=== PATIENT | male | born 1950 | race Caucasian/White ===

== ENCOUNTER 2024-09-19 10:13 | Inpatient (IN) ==
[2024-09-19 10:46] LABS: ABS Basophils 0.1 10^3/uL (0.0-0.1); ABS Lymphocytes 1.2 10^3/uL (1.0-4.8); ABS Monocytes 1.3 10^3/uL (0.0-1.1); ABS Neutrophils 12.3 10^3/uL (1.5-7.6); ABS Nucleated RBC 0.01 10^3/ul; Hematocrit 42.8 % (38-53); Mean Corpuscular Hemoglobin 29.2 pg (27-33); Mean Corpuscular Hgb Conc 32.8 g/dL (31-36); Mean Platelet Volume 7.6 fL (7.5-11.2); Platelet Count 148 10^3/uL (150-450); Red Blood Count 4.81 10^6/uL (4.06-5.63); Red Cell Distribution Width 14.3 % (12-17); White Blood Count 14.9 10^3/uL (3.6-10.2)
[2024-09-19 10:52] LABS: INR 1.33 (0.85-1.14)
[2024-09-19 11:43] LABS: Albumin 4.4 g/dL (3.5-5.7); Calcium 9.6 mg/dL (8.6-10.3); Creatinine, Serum 1.66 mg/dL (0.67-1.17); Globulin 2.2 g/dL (2-4); Potassium 4.9 mmol/L (3.5-5.0); Total Bilirubin 1.1 mg/dL (0.2-1.0); Total Protein 6.6 g/dL (6.4-8.9)
[2024-09-19 12:29] LABS: High Sensitivity Troponin 1 Hr 106 pg/mL (<20)
[2024-09-19] MEDS: Iodixanol 320 (CONTRAST) 100 ML SDV IV ONE (13:24)
[2024-09-19] MEDS: Sulfur Hexaflouride MICROSPHR 25 MG VIAL IV PRN (14:53)
[2024-09-19] MEDS ORDERED: Sulfur Hexaflouride MICROSPHR 25 MG VIAL IV PRN (15:33)
[2024-09-19] MEDS: Heparin DRIP 25,000 UNITS BAG 25,000 UNITS/250 ML BAG IV SCH (15:48)
[2024-09-19] MEDS: Heparin 5000 UNITS/ML 1 mL VIAL IV SCH (15:50)
[2024-09-19 16:00] LABS: Hemoglobin 13.4 g/dL (13.2-16.3); Mean Corpuscular Hgb Conc 32.7 g/dL (31-36); Mean Corpuscular Volume 88.9 fL (80-97); Mean Platelet Volume 7.6 fL (7.5-11.2); Platelet Count 152 10^3/uL (150-450); Red Blood Count 4.61 10^6/uL (4.06-5.63); Red Cell Distribution Width 14.3 % (12-17); White Blood Count 14.2 10^3/uL (3.6-10.2)
[2024-09-19] MEDS ORDERED: Pantoprazole VIAL 40 MG VIAL IV SCH (16:00)
[2024-09-19 16:46] LABS: Creatinine, Serum 1.55 mg/dL (0.67-1.17); Magnesium 2.1 mg/dL (1.9-2.7); eGFR CKD-EPI 46.7 (>60)
[2024-09-19 17:00] LABS: Giant Platelets Present; RBC Morphology Normal (Normal)
[2024-09-19 17:08] LABS: ABS Basophils 0.1 10^3/uL (0.0-0.1); ABS Lymphocytes 1.4 10^3/uL (1.0-4.8); ABS Monocytes 1.6 10^3/uL (0.0-1.1); ABS Neutrophils 11.2 10^3/uL (1.5-7.6); ABS Nucleated RBC 0.01 10^3/ul; Eosinophil % 0.1 %; Lymphocyte % 9.7 %; Nucleated Red Blood Cells % 0.1 %/100WBC (0.0-0.8)
[2024-09-20 05:34] LABS: ABS Basophils 0.1 10^3/uL (0.0-0.1); ABS Eosinophils 0.1 10^3/uL (0.0-0.5); ABS Lymphocytes 1.8 10^3/uL (1.0-4.8); ABS Monocytes 1.5 10^3/uL (0.0-1.1); ABS Neutrophils 8.2 10^3/uL (1.5-7.6); ABS Nucleated RBC 0.01 10^3/ul; Eosinophil % 0.4 %; Hematocrit 38.1 % (38-53); Hemoglobin 12.4 g/dL (13.2-16.3); Lymphocyte % 15.2 %; Mean Corpuscular Hemoglobin 28.7 pg (27-33); Mean Corpuscular Hgb Conc 32.7 g/dL (31-36); Mean Corpuscular Volume 87.7 fL (80-97); Mean Platelet Volume 7.7 fL (7.5-11.2); Platelet Count 149 10^3/uL (150-450); Red Blood Count 4.34 10^6/uL (4.06-5.63); Red Cell Distribution Width 14.4 % (12-17); White Blood Count 11.6 10^3/uL (3.6-10.2)
[2024-09-20 07:27] LABS: Calcium 8.9 mg/dL (8.6-10.3); Creatinine, Serum 1.45 mg/dL (0.67-1.17); Potassium 4.6 mmol/L (3.5-5.0); eGFR CKD-EPI 50.6 (>60)
[2024-09-20] MEDS ORDERED: Midazolam 5 mg/5 ml VIAL 1 mg/ml 5 ml VIAL (5 mg) ONE (12:05)
[2024-09-20] MEDS ORDERED: fentaNYL 100 mcg/2 ml 50 MCG/ML VIAL ONE (12:05)
[2024-09-20] MEDS ORDERED: Iohexol 350 (CONTRAST) 200 ML MDV IV ONE (12:06)
[2024-09-20] MEDS ORDERED: Lidocaine 1% MPF 5 ML VIAL ONE (12:06)
[2024-09-20] MEDS ORDERED: Heparin 2 UNITS/ML 1000 mls 3,000 ML IV ONE (12:07)
[2024-09-20] MEDS ORDERED: Iohexol 350 (CONTRAST) 100 ML PAK IV ONE ×2 (12:30→13:26)
[2024-09-20] MEDS ORDERED: Heparin 1,000 UNIT/ML 10 ml (10,000 UNITS) CATHLAB/DIALYSIS ONE ×2 (12:35→14:10)
[2024-09-20] MEDS ORDERED: Heparin 2 UNITS/ML 1000 mls 1,000 ML IV ONE (13:22)
[2024-09-20] MEDS: NS 0.9% 1000 ml BAG 1,000 ML IV SCH (15:03)
[2024-09-21 04:37] LABS: ABS Basophils 0.1 10^3/uL (0.0-0.1); ABS Lymphocytes 1.3 10^3/uL (1.0-4.8); ABS Monocytes 1.1 10^3/uL (0.0-1.1); ABS Neutrophils 7.1 10^3/uL (1.5-7.6); Eosinophil % 0.2 %; Hematocrit 33.7 % (38-53); Hemoglobin 11.4 g/dL (13.2-16.3); Lymphocyte % 13.3 %; Mean Corpuscular Hemoglobin 29.9 pg (27-33); Mean Corpuscular Hgb Conc 33.8 g/dL (31-36); Mean Corpuscular Volume 88.4 fL (80-97); Mean Platelet Volume 7.6 fL (7.5-11.2); Platelet Count 159 10^3/uL (150-450); Red Blood Count 3.81 10^6/uL (4.06-5.63); Red Cell Distribution Width 14.3 % (12-17); White Blood Count 9.6 10^3/uL (3.6-10.2)
[2024-09-21 04:46] LABS: INR 2.04 (0.85-1.14)
[2024-09-21 05:13] LABS: Calcium 8.6 mg/dL (8.6-10.3); Creatinine, Serum 1.52 mg/dL (0.67-1.17); Potassium 4.4 mmol/L (3.5-5.0); eGFR CKD-EPI 47.8 (>60)
[2024-09-21 14:40] VITALS: BP 135/71
== END 2024-09-21 14:42 | disposition home or self-care (01) | DRG 164 ==
LOC: ED 10:13 → EDHOLD 14:54 → ICU 16:41
PROVIDERS: ADMIT Internal Medicine; ATTEND Internal Medicine